=== PATIENT | female | born 2000 | race African-American/Black ===

== ENCOUNTER 2018-04-14 07:42 | Emergency (ER) | payer OTHER, SELFPAY ==
[2018-04-14] MEDS ORDERED: Ibuprofen 800 MG TAB ONE (08:32)
[2018-04-14] MEDS ORDERED: Dexamethasone 4 mg/ml Vial ONE (08:32)
== END 2018-04-14 08:43 | disposition home or self-care (01) ==
LOC: ERS 07:42
DX: J02.0 Streptococcal pharyngitis (principal); J45.909 Unspecified asthma, uncomplicated
CPT/HCPCS: 87430; 99283; J1100

== ENCOUNTER 2018-07-20 10:17 | Emergency (ER) | payer SELFPAY ==
--- NOTE | 2018-07-20 12:44 | RAD ---
LEFT ANKLE THREE VIEWS: HISTORY: Sprained ankle at work, while working this morning. TECHNIQUE: AP, lateral, and oblique views of the left ankle obtained. FINDINGS: Three views of the left ankle demonstrate no evidence of left ankle fractures, subluxations, or bony lesions. IMPRESSION: Normal three views left ankle. POS: [facility]
[2018-07-20] MEDS ORDERED: Naproxen 500 MG TAB ONE (12:54)
== END 2018-07-20 12:58 | disposition home or self-care (01) ==
LOC: ERS 10:17
DX: M25.572 Pain in left ankle and joints of left foot (principal); J45.909 Unspecified asthma, uncomplicated

== ENCOUNTER 2018-11-27 21:02 | Emergency (ER) | payer SELFPAY ==
[~2018-11-27 21:02] MED LIST: Iopamidol 370 76% 100 ML VIAL ONE
--- NOTE | 2018-11-27 21:37 | RAD ---
Chest one view HISTORY: Dyspnea. Wheezing. COMPARISON: 06/14/2014. FINDINGS: Cardiac silhouette is magnified by projection. Pulmonary vasculature is unremarkable. Small lucency along the left margin of the aortic arch and upper heart could represent small area of pneumomediastinum, although overlying tubing is also present and could result in artifact. No evidenc e of pneumothorax. IMPRESSION: Abnormality along the left mediastinum as detailed above. Possible small pneumomediastinu m. Please consider upright PA and lateral views of the chest for better evaluation.
[2018-11-27] MEDS ORDERED: predniSONE 20 MG TAB ONE (21:41)
--- NOTE | 2018-11-27 21:51 | RAD ---
Chest 2 views HISTORY: Cough. Dyspnea. Abnormal chest radiograph. FINDINGS: Upright PA view shows persistent linear lucency along the left upper heart border, similar to the initial image. Possibly seen on the lateral view, although not as definite. No pneumothorax or pleural fluid. IMPRESSION: Very small pneumomediastinum along the left upper cardiac margin. Findings were called to Desi Toro in the emergency department at 2147 hours. Code CR.
--- NOTE | 2018-11-27 22:55 | CT ---
CT arteriogram chest with IV contrast and 3-D imaging HISTORY: Dyspnea. Chest pain. FINDINGS: There is good contrast opacification pulmonary arteries and thoracic aorta with normal bran jack great vessels at the aortic arch. Gas is present within the mediastinum outside of the airway and esophagus. Pockets extends into the upper substernal levels and as far inferiorly as the GE junct ion. No significant fluid component. Small focus of parenchymal opacity is present at the right anterior medial lung base. Mild infiltrate at the right infrahilar level and the left anterior lung base. No pneumothorax. IMPRESSION: No CT evidence of pulmonary embolus. Pneumomediastinum is confirmed. Cause is not evident. Mild multifocal bibasilar infiltrates. Cause is not evident.
== END 2018-11-27 23:23 | disposition home or self-care (01) ==
LOC: ERS 21:02
DX: J98.2 Interstitial emphysema (principal); J18.9 Pneumonia, unspecified organism
CPT/HCPCS: 71045; 71046; 71275; 94640; J7512; J7620; Q9967

== ENCOUNTER 2019-09-07 09:46 | Emergency (ER) | payer SELFPAY ==
[2019-09-07] MEDS ORDERED: Dexamethasone 10 MG/ML VIAL ONE (10:25)
--- NOTE | 2019-09-07 11:41 | RAD ---
PORTABLE CHEST: Date: 09/07/2019 PROVIDED CLINICAL HISTORY: Shortness of breath. FINDINGS: Comparison with 11/27/2018. Cardiac and mediastinal silhouette is within normal limits. Lungs appear clear. No pleural fluid or p neumothorax apparent. IMPRESSION: No evidence for an acute cardiopulmonary process. POS: C
== END 2019-09-07 11:59 | disposition home or self-care (01) ==
LOC: ERS 09:46
DX: J45.901 Unspecified asthma with (acute) exacerbation (principal)
CPT/HCPCS: 71045; 94640; J1100; J7620

== ENCOUNTER 2020-09-30 20:22 | Observation (INO) | payer SELFPAY ==
[2020-09-30 21:01] LABS: Hemoglobin 7.7 g/dL (12.0-16.0); Mean Corpuscular HGB CONC 31.3 g/dL (32.0-36.0); Mean Corpuscular Hemoglobin 24.3 pg (27.0-31.0); Mean Corpuscular Volume 77.7 fL (78.0-98.0); Mean Platelet Volume 7.9 fL (7.4-10.4); Platelet Count 663 thou/uL (130-400); RBC Distribution Width 19.9 % (11.5-14.5); Red Blood Cell (RBC) Count 3.18 mill/uL (4.20-5.40); White Blood Cell (WBC) Count 11.4 thou/uL (4.8-10.8)
[2020-09-30 21:03] LABS: Bilirubin Negative (Negative); Blood, Urine Negative (Negative); Clarity Turbid (Clear); Glucose, Urine (Dipstick) Normal (Negative); Ketone, Urine Negative (Negative); Leukocyte 250 Leu/uL (Negative); Nitrite Negative (Negative); Protein, Urine (Dipstick) 20 mg/dL (Neg-Trace); RBC/HPF 0-3 HPF (0-3); Specific Gravity, Urine 1.028 (1.002-1.036); Urobilinogen Normal mg/dL (Less than 2)
[2020-09-30 21:07] LABS: Pregnancy Test - Urine (BHCG) Negative (Negative); Pregu Control Background? CLEAR/WHITE (CLR/WHITE); Pregu Control Bar Appear? YES (CONTROL BAR); Specific Gravity 1.028 (1.002-1.036)
[2020-09-30 21:10] LABS: Bacteria/HPF 1+ HPF (None Seen); Mucous/LPF 2+ LPF (<2+)
[2020-09-30] MEDS ORDERED: Acetaminophen 500 MG TAB ONE (21:11)
[2020-09-30 21:19] LABS: #Basophils 0.1 thou/uL (0.0-0.2); #Eosinphils 0.2 thou/uL (0.0-0.7); #Lymphocytes 2.5 thou/uL (1.20-3.40); #Monocytes 0.4 thou/uL (0.11-0.59); #Neutrophils 8.3 thou/uL (1.40-6.50); %Basophils 0.7 % (0.0-1.0); %Eosinophils 1.8 % (0.0-10.0); %Lymphocytes 21.7 % (21.0-51.0); %Monocytes 3.2 % (0.0-10.0); %Neutrophils 72.6 % (42.0-75.0); Hypochromia SLIGHT = 6-15 cells (100X) (0-5/hpf); MDiff Complete? YES; Microcytosis SLIGHT = 6-15 cells (100X) (0-5/hpf); Polychromasia SLIGHT = 2-3 cells (100X) (0-2/hpf)
[2020-09-30 21:26] LABS: ALT (SGPT) 11 U/L (8-55); AST (SGOT) 14 U/L (5-34); Albumin 4.3 g/dL (3.5-5.0); Alkaline Phosphatase 74 U/L (40-110); Anion Gap 12 mmol/L (10-20); BUN (Urea Nitrogen) 10 mg/dL (7.0-18.7); Bilirubin, Total 0.2 mg/dL (0.2-1.2); Calc. Creatinine Clearance 0 mL/min (70-130); Calcium 9.4 mg/dL (7.8-10.44); Carbon Dioxide 21 mmol/L (22-29); Chloride 107 mmol/L (98-107); Globulin 3.7 g/dL (2.4-3.5); Glucose 157 mg/dL (70-105); Lipase 37 U/L (8-78); Potassium 3.3 mmol/L (3.5-5.1); Sodium 137 mmol/L (136-145)
[2020-10-01] MEDS ORDERED: Ondansetron ODT 4 MG TAB SL PRN (00:30)
[2020-10-01] MEDS ORDERED: Ondansetron PF 4 MG/2 ML Vial IVP PRN ×2 (00:30→00:53)
[2020-10-01] MEDS ORDERED: Acetaminophen 325 MG TAB PO PRN ×2 (00:30→00:53)
[2020-10-01 00:43] VITALS: BMI 46.4
[2020-10-01] MEDS ORDERED: Magnesium Oxide 400 MG TAB PO SCH ×2 (01:00→01:15)
[2020-10-01] MEDS ORDERED: Potassium Chloride 20 MEQ TAB PO SCH (01:00)
[2020-10-01 02:53] LABS: SARS-CoV-2 NAA Rapid Test Not Detected (NotDetected)
[2020-10-01 05:10] LABS: #Basophils 0.1 thou/uL (0.0-0.2); #Eosinphils 0.2 thou/uL (0.0-0.7); #Lymphocytes 3.2 thou/uL (1.20-3.40); #Monocytes 0.6 thou/uL (0.11-0.59); #Neutrophils 7.7 thou/uL (1.40-6.50); %Basophils 0.4 % (0.0-1.0); %Eosinophils 1.8 % (0.0-10.0); %Lymphocytes 27.4 % (21.0-51.0); %Monocytes 4.8 % (0.0-10.0); %Neutrophils 65.5 % (42.0-75.0); Hemoglobin 8.4 g/dL (12.0-16.0); Mean Corpuscular HGB CONC 30.9 g/dL (32.0-36.0); Mean Corpuscular Hemoglobin 24.4 pg (27.0-31.0); Mean Corpuscular Volume 78.9 fL (78.0-98.0); Platelet Count 492 thou/uL (130-400); RBC Distribution Width 19.3 % (11.5-14.5); Red Blood Cell (RBC) Count 3.43 mill/uL (4.20-5.40); White Blood Cell (WBC) Count 11.8 thou/uL (4.8-10.8)
[2020-10-01 05:26] LABS: Anion Gap 11 mmol/L (10-20); BUN (Urea Nitrogen) 11 mg/dL (7.0-18.7); Calc. Creatinine Clearance 221 mL/min (70-130); Calcium 9.3 mg/dL (7.8-10.44); Carbon Dioxide 22 mmol/L (22-29); Chloride 109 mmol/L (98-107); Glucose 131 mg/dL (70-105); Potassium 3.7 mmol/L (3.5-5.1); Sodium 138 mmol/L (136-145)
[2020-10-01] MEDS ORDERED: Mag-Al 1200 mg/1200 mg/30 ML UDCUP PO SCH (05:45)
[2020-10-01 06:17] LABS: Hemoglobin A1c 5.1 % (4.0-6.0)
[2020-10-01] MEDS: cefTRIAXone\\ROCEPHIN 1 GM in Sodium Chloride 0.9% 100 ML IVPB SCH (09:18)
[2020-10-01] MEDS: Sodium Chloride 0.9% 1,000 ML IV SCH ×2 (12:59→22:20)
[2020-10-02 05:50] LABS: #Basophils 0.1 thou/uL (0.0-0.2); #Eosinphils 0.2 thou/uL (0.0-0.7); #Monocytes 0.6 thou/uL (0.11-0.59); #Neutrophils 5.8 thou/uL (1.40-6.50); %Basophils 0.9 % (0.0-1.0); %Eosinophils 2.1 % (0.0-10.0); %Lymphocytes 30.8 % (21.0-51.0); %Monocytes 6.4 % (0.0-10.0); %Neutrophils 59.9 % (42.0-75.0); Hemoglobin 8.5 g/dL (12.0-16.0); Mean Corpuscular HGB CONC 30.4 g/dL (32.0-36.0); Mean Corpuscular Volume 78.9 fL (78.0-98.0); Mean Platelet Volume 8.1 fL (7.4-10.4); Platelet Count 519 thou/uL (130-400); RBC Distribution Width 19.4 % (11.5-14.5); Red Blood Cell (RBC) Count 3.54 mill/uL (4.20-5.40); White Blood Cell (WBC) Count 9.7 thou/uL (4.8-10.8)
[2020-10-02 06:04] LABS: Anion Gap 10 mmol/L (10-20); BUN (Urea Nitrogen) 9 mg/dL (7.0-18.7); Calc. Creatinine Clearance 215 mL/min (70-130); Carbon Dioxide 23 mmol/L (22-29); Chloride 107 mmol/L (98-107); Glucose 95 mg/dL (70-105); Potassium 3.7 mmol/L (3.5-5.1); Sodium 136 mmol/L (136-145)
[2020-10-02] MEDS: cefTRIAXone\\ROCEPHIN 1 GM in Sodium Chloride 0.9% 100 ML IVPB SCH (08:56)
[2020-10-02 17:01] VITALS: BP 117/58; TEMP 100.7
== END 2020-10-02 17:23 | disposition home or self-care (01) ==
LOC: ERS 20:22 → T4-A 23:33 → 2SE 10-01 02:01 → 2SW 10-02 04:30
PROVIDERS: ADMIT Internal Medicine; ATTEND Internal Medicine
DX: R55 Syncope and collapse (principal); R94.31 Abnormal electrocardiogram [ECG] [EKG]; D50.9 Iron deficiency anemia, unspecified; N39.0 Urinary tract infection, site not specified; D72.829 Elevated white blood cell count, unspecified; E87.6 Hypokalemia; I08.1 Rheumatic disorders of both mitral and tricuspid valves; J45.909 Unspecified asthma, uncomplicated; R73.9 Hyperglycemia, unspecified; Z87.891 Personal history of nicotine dependence; Z20.822 Contact with and (suspected) exposure to COVID-19
CPT/HCPCS: 36415; 36430; 70450; 71045; 80048; 80053; 81003; 81015; 81025; 83036; 83690; 83735; 84484; 85025; 86850; 86900; 86901; 87086; 93005; 93010; 93306; 95712; 95819; 95957; 96365; 96376; G0378; J0696; J3490; P9016; U0002; U0005

== ENCOUNTER 2020-12-11 10:57 | Emergency (ER) | payer SELFPAY ==
[2020-12-11 12:58] LABS: #Eosinphils 0.2 thou/uL (0.0-0.7); #Lymphocytes 2.6 thou/uL (1.20-3.40); #Monocytes 0.3 thou/uL (0.11-0.59); #Neutrophils 3.4 thou/uL (1.40-6.50); %Basophils 0.7 % (0.0-1.0); %Eosinophils 2.8 % (0.0-10.0); %Lymphocytes 39.9 % (21.0-51.0); %Monocytes 5.1 % (0.0-10.0); %Neutrophils 51.6 % (42.0-75.0); Mean Corpuscular Hemoglobin 23.5 pg (27.0-31.0); Mean Corpuscular Volume 75.8 fL (78.0-98.0); Mean Platelet Volume 8.6 fL (7.4-10.4); Platelet Count 451 thou/uL (130-400); RBC Distribution Width 18.2 % (11.5-14.5); White Blood Cell (WBC) Count 6.6 thou/uL (4.8-10.8)
[2020-12-11 13:00] LABS: BHCG - Serum Negative (NEGATIVE); Pregs Control Background? CLEAR/WHITE (CLR/WHITE); Pregs Control Bar Appear? YES (CONTROL BAR)
[2020-12-11 13:16] LABS: ALT (SGPT) 14 U/L (8-55); AST (SGOT) 19 U/L (5-34); Alkaline Phosphatase 70 U/L (40-110); Anion Gap 10 mmol/L (10-20); BUN (Urea Nitrogen) 9 mg/dL (7.0-18.7); Bilirubin, Total 0.3 mg/dL (0.2-1.2); Calc. Creatinine Clearance 0 mL/min (70-130); Calcium 9.3 mg/dL (7.8-10.44); Carbon Dioxide 20 mmol/L (22-29); Chloride 107 mmol/L (98-107); Globulin 3.8 g/dL (2.4-3.5); Glucose 85 mg/dL (70-105); Potassium 3.9 mmol/L (3.5-5.1); Protein, Total 7.8 g/dL (6.0-8.3); Sodium 133 mmol/L (136-145)
[2020-12-11 13:36] LABS: Bacteria/HPF 1+ HPF (None Seen); Bilirubin Negative (Negative); Blood, Urine 1+ (Negative); Clarity Clear (Clear); Glucose, Urine (Dipstick) Normal (Negative); Ketone, Urine Negative (Negative); Leukocyte Negative Leu/uL (Negative); Nitrite Negative (Negative); Protein, Urine (Dipstick) 10 mg/dL (Neg-Trace); RBC/HPF 0-3 HPF (0-3); Specific Gravity, Urine 1.026 (1.002-1.036); Urobilinogen Normal mg/dL (Less than 2); pH, Urine 6.5 (5.0-9.0)
== END 2020-12-11 15:53 | disposition home or self-care (01) ==
LOC: ERS 10:57
DX: R55 Syncope and collapse (principal); J45.909 Unspecified asthma, uncomplicated
CPT/HCPCS: 36415; 36416; 71045; 80053; 81003; 81015; 84484; 84703; 85025; 87086; 93005

== ENCOUNTER 2022-05-15 09:16 | Emergency (ER) | payer SELFPAY ==
[2022-05-15] MEDS ORDERED: Acetaminophen 500 MG TAB ONE (11:39)
[2022-05-15 12:00] LABS: Bacteria/HPF None Seen HPF (None Seen); Bilirubin Negative (Negative); Blood, Urine 3+ (Negative); Clarity Clear (Clear); Glucose, Urine (Dipstick) Normal (Negative); Ketone, Urine Negative (Negative); Leukocyte Negative Leu/uL (Negative); Nitrite Negative (Negative); Protein, Urine (Dipstick) 30 mg/dL (Neg-Trace); Specific Gravity, Urine 1.029 (1.002-1.036); Squamous Epithelial 0-3 HPF (0-3); Urobilinogen 3 mg/dL (Less than 2); WBC/HPF 0-3 HPF (0-3)
== END 2022-05-15 12:30 | disposition home or self-care (01) ==
LOC: ERS 09:16
DX: L72.0 Epidermal cyst (principal)
CPT/HCPCS: 81003; 81015; 99283

== ENCOUNTER 2022-05-17 10:41 | Emergency (ER) | payer SELFPAY ==
[2022-05-17] MEDS ORDERED: Ibuprofen 200 MG TAB ONE (11:31)
== END 2022-05-17 11:35 | disposition home or self-care (01) ==
LOC: ERS 10:41
DX: L02.214 Cutaneous abscess of groin (principal)
CPT/HCPCS: 99282

== ENCOUNTER 2022-06-12 09:09 | Emergency (ER) | payer SELFPAY ==
[2022-06-12 10:34] LABS: Mean Corpuscular HGB CONC 32.8 g/dL (32.0-36.0); Mean Corpuscular Hemoglobin 30.2 pg (27.0-31.0); Mean Platelet Volume 8.7 fL (7.4-10.4); Platelet Count 286 10x3/uL (130-400); RBC Distribution Width 13.1 % (11.5-14.5); Red Blood Cell (RBC) Count 3.66 mill/uL (4.20-5.40); White Blood Cell (WBC) Count 22.6 10x3/uL (4.8-10.8)
[2022-06-12 10:41] LABS: Bacteria/HPF None Seen HPF (None Seen); Bilirubin Negative (Negative); Blood, Urine Negative (Negative); Glucose, Urine (Dipstick) Normal (Negative); Ketone, Urine 60 mg/dL (Negative); Leukocyte Negative Leu/uL (Negative); Nitrite Negative (Negative); Protein, Urine (Dipstick) 50 mg/dL (Neg-Trace); RBC/HPF 0-3 HPF (0-3); pH, Urine 5.5 (5.0-9.0)
[2022-06-12 10:42] LABS: Clarity Hazy (Clear)
[2022-06-12 10:45] LABS: Pregnancy Test - Urine (BHCG) Negative (Negative); Pregu Control Background? CLEAR/WHITE (CLR/WHITE); Pregu Control Bar Appear? YES (CONTROL BAR)
[2022-06-12 10:53] LABS: ALT (SGPT) 25 U/L (8-55); AST (SGOT) 31 U/L (5-34); Albumin 3.9 g/dL (3.5-5.0); Alkaline Phosphatase 104 U/L (40-110); Anion Gap 12 mmol/L (10-20); BUN (Urea Nitrogen) 11 mg/dL (7.0-18.7); Bilirubin, Total 1.2 mg/dL (0.2-1.2); Calc. Creatinine Clearance 0 mL/min (70-130); Calcium 9.7 mg/dL (7.8-10.44); Carbon Dioxide 21 mmol/L (22-29); Chloride 100 mmol/L (98-107); Estimated GFR 97; Globulin 4.7 g/dL (2.4-3.5); Glucose 98 mg/dL (70-105); Lipase 24 U/L (8-78); Potassium 3.4 mmol/L (3.5-5.1); Protein, Total 8.6 g/dL (6.0-8.3); Sodium 130 mmol/L (136-145)
[2022-06-12 11:21] LABS: Band 17 % (5-11); Lymphocytes 9 % (21-51); MDiff Complete? YES; Monocytes 9 % (0-10); Neutrophil 65 % (42-75); Platelet Morphology Comment Appears Adequate; RBC Morphology Normal
== END 2022-06-12 11:53 | disposition home or self-care (01) ==
LOC: ERS 09:09
DX: R55 Syncope and collapse (principal)
CPT/HCPCS: 71045; 80053; 81003; 81015; 81025; 83690; 83880; 84484; 85025; 85379; 87081; 87430; 93005; 96360; 96361

== ENCOUNTER 2022-08-27 23:46 | Emergency (ER) | payer SELFPAY | END 2022-08-28 00:37 | disposition home or self-care (01) | LOC: ERS 23:46 | DX: R42 Dizziness and giddiness (principal); J45.909 Unspecified asthma, uncomplicated | CPT/HCPCS: 99283 ==

== ENCOUNTER 2023-03-16 19:59 | Emergency (ER) | payer SELFPAY | END 2023-03-16 23:11 | disposition home or self-care (01) | LOC: ERS 19:59 | DX: S93.402A Sprain of unspecified ligament of left ankle, initial encounter (principal); X50.0XXA Overexertion from strenuous movement or load, initial encounter ==

== ENCOUNTER 2023-04-02 21:36 | Emergency (ER) | payer OTHER, SELFPAY ==
[2023-04-02] MEDS ORDERED: Ketorolac Tromethamine 30 MG/ML VIAL ONE (23:38)
[2023-04-03 00:16] LABS: BHCG - Serum Negative (NEGATIVE); Pregs Control Background? CLEAR/WHITE (CLR/WHITE); Pregs Control Bar Appear? YES (CONTROL BAR)
[2023-04-03] MEDS ORDERED: Dexamethasone 10 MG/ML VIAL ONE (00:25)
== END 2023-04-03 00:36 | disposition home or self-care (01) ==
LOC: ERS 21:36
DX: M25.571 Pain in right ankle and joints of right foot (principal); M25.572 Pain in left ankle and joints of left foot
CPT/HCPCS: 36415; 84703; 96372; 99283; J1100; J1885

== ENCOUNTER 2023-04-12 05:47 | Emergency (ER) | payer OTHER ==
[2023-04-12] MEDS ORDERED: predniSONE 20 MG TAB ONE (07:12)
[2023-04-12 07:19] LABS: SARS-CoV-2 NAA Rapid Test Not Detected (NotDetected)
[2023-04-12] MEDS ORDERED: Ipratropium Bromide 2.5 ml Neb ONE (07:48)
== END 2023-04-12 09:10 | disposition home or self-care (01) ==
LOC: ERS 05:47
DX: J45.901 Unspecified asthma with (acute) exacerbation (principal); Z20.822 Contact with and (suspected) exposure to COVID-19
CPT/HCPCS: J7512; J7611

== ENCOUNTER 2024-03-06 09:17 | Emergency (ER) | payer OTHER | END 2024-03-06 10:14 | disposition home or self-care (01) | LOC: ERS 09:17 | DX: O99.891 Other specified diseases and conditions complicating pregnancy (principal); M79.672 Pain in left foot; M79.671 Pain in right foot; Z3A.13 13 weeks gestation of pregnancy | CPT/HCPCS: 99283 ==

== ENCOUNTER 2024-03-17 07:11 | Emergency (ER) | payer OTHER | END 2024-03-17 07:45 | disposition home or self-care (01) | LOC: ERS 07:11 | DX: J06.9 Acute upper respiratory infection, unspecified (principal); J45.909 Unspecified asthma, uncomplicated; Z79.51 Long term (current) use of inhaled steroids | CPT/HCPCS: 99283 ==